=== PATIENT | female | born 1955 | race Caucasian/White ===

== ENCOUNTER → 2018-05-17 | Outpatient (CLI) | payer MEDICARE | END | disposition home or self-care (01) | LOC: LABWHC1 08:42 | PROVIDERS: ATTEND Otolaryngology | DX: B44.89 Other forms of aspergillosis (principal); J30.89 Other allergic rhinitis; L50.0 Allergic urticaria | CPT/HCPCS: 36415; 86001 ==

== ENCOUNTER 2024-10-09 10:00 | Day surgery (SDC) | payer MEDICARE ==
[~2024-10-09 10:00] MED LIST: BENZOCAINE SPRAY 1 EACH MM SCH
[2024-10-09] MEDS: IV FLUID CONTINUATION 1,000 ML IV ONE (10:16)
[2024-10-09 10:35] VITALS: RESP 16; TEMP 97.6
[2024-10-09] MEDS: BENZOCAINE SPRAY 1 EACH MUCOUS MEM ONE ×2 (11:58→12:07)
[2024-10-09] MEDS: fentaNYL (PF) 50 MCG/ML 2 ML AMP IVP ONE (12:08)
[2024-10-09] MEDS: MIDAZOLAM 2 MG/2 ML VIAL IVP ONE ×3 (12:08→12:20)
[2024-10-09] MEDS: fentaNYL (PF) 50 MCG/ML 5 ML AMP IVP PRN (12:14)
[2024-10-09] MEDS: MIDAZOLAM 2 MG/2 ML VIAL IV PRN (12:16)
--- NOTE | 2024-10-09 13:01 | P.PCN ---
Date of Procedure: 10/09/24 Operative Findings: TRANSESOPHAGEAL ECHOCARDIOGRAM FOUNDRY SUPERVISOR: MARIO CARRENO MD, RPVI INDICATION: Rule out atrial septal defect SEDATION: Conscious sedation COMPLICATION: None LEVEL OF SEDATION Moderate with sedation next of 24-minute PROCEDURE DESCRIPTION: After obtaining an informed consent, the patient was brought to transesophageal echocardiogram room. Pulse oximetry and heart monitors were attached to the patient. The patient throat was sprayed using lidocaine. The patient was turned into left lateral position. After that a bite guard was placed. After an appropriate conscious sedation was initiated, the transesophageal echocardiogram was advanced through a bite guard into the mid esophagus. A 2-D echocardiogram images, color Doppler images, continuous wave images, pulse-wave images, of various cardiac structure were performed. After that the transesophageal echocardiogram probe was advanced into the stomach and fixed to obtain transgastric view was. The probe was brought into the mid esophagus. Inter-atrial septum was interrogated using 2D images, color Doppler images, and then contrast study. After that transesophageal echocardiogram was withdrawn out and upon withdrawing the descending thoracic aorta all the way up to the arch was evaluated. CONCLUSION: 1. Intact interatrial septum with no PFO or ASD 2. Normal biventricular systolic function 3. Trileaflet aortic valve with no stenosis with mild insufficiency 4. Mild to moderate mitral regurgitation 5. Moderate to severe tricuspid regurgitation 6. No pericardial effusion
[2024-10-09 13:40] VITALS: BP 108/62; PULSE 81
== END 2024-10-09 13:36 | disposition home or self-care (01) ==
LOC: CATHCVL 10:00
PROVIDERS: ATTEND Internal Medicine Interventional Cardiology
DX: I08.1 Rheumatic disorders of both mitral and tricuspid valves (principal); I49.8 Other specified cardiac arrhythmias; I47.9 Paroxysmal tachycardia, unspecified; R94.31 Abnormal electrocardiogram [ECG] [EKG]; I10 Essential (primary) hypertension; E66.3 Overweight; Z68.32 Body mass index [BMI] 32.0-32.9, adult; Z88.5 Allergy status to narcotic agent; Z79.899 Other long term (current) drug therapy
CPT/HCPCS: 93312; 93320; 93325; 99152; 99153; J2250; J3010 ×2